=== PATIENT | male | born 1955 | race Caucasian/White ===

== ENCOUNTER 2019-11-16 23:56 | Inpatient (IN) | payer MEDICARE, OTHER ==
[~2019-11-16] VITALS: Ht 170.2 cm; Wt 81.6 kg
[2019-11-17] MEDS ORDERED: ONDANSETRON HCL 4MG/2ML INJ IV STA (00:42)
[2019-11-17] MEDS ORDERED: SODIUM CHLORIDE 0.9% 1,000 ML IV ONE (00:42)
[2019-11-17] MEDS ORDERED: AZITHROMYCIN 500 MG in DEXT 5% WATER 250 ML IV ONE (00:45)
[2019-11-17] MEDS ORDERED: CEFTRIAXONE 1 G PREMIX 50 ML IV ONE (00:45)
[2019-11-17 01:09] LABS: HEMATOCRIT. 41.8 % (42.0-52.0); HEMOGLOBIN. 13.8 g/dL (14.0-18.0); MEAN CORPUSCULAR HEMOGLOBIN 29.2 pg (28.0-32.0); MEAN CORPUSCULAR VOLUME 88.5 fL (80.0-94.0); MEAN PLATELET VOLUME 8.6 fl (7.4-10.4); PLATELET 142 x1000/uL (130-400); RED BLOOD CELL COUNT 4.72 mill/uL (4.7-6.1); RED CELL DISTRIBUTION WIDTH 14.8 % (11.6-14.6)
[2019-11-17 01:13] LABS: CHLORIDE 107 mEq/L (98-107)
[2019-11-17 01:15] LABS: INR 1.2; PROTHROMBIN TIME 11.8 sec (9.6-11.0)
[2019-11-17 01:18] LABS: ETHANOL BLOOD < 10 mg/dL
[2019-11-17 01:21] LABS: BG BASE EXCESS -4.5 mmol/L (-2.0-2.0); BG CARBOXYHEMOGLOBIN 0.5 % (0.5-1.5); BG DEOXYHEMOGLOBIN 3.6 % (0.0-5.0); BG FRACTION INSPIRED OXYGEN 60; BG HCO3 ACT 19.6 mmol/L (22.0-26.0); BG METHEMOGLOBIN 0.3 % (0.0-1.5); BG OXYGEN SATURATION 96.4 % (92.0-98.5); BG OXYHEMOGLOBIN 95.6 % (94.0-97.0); BG PCO2 33.3 mmHg (35.0-45.0); BG PH 7.388 (7.350-7.450); BG PO2 92.4 mmHg (75.0-100.0); BG SAMPLE SITE RIGHT RADIAL; BG TOTAL HEMOGLOBIN 13.1 g/dL (12.0-18.0); BG VENT MODE MASK - SIMPLE
[2019-11-17 01:59] LABS: CLARITY URINE TURBID (CLEAR); COLOR URINE DARK YELLOW (YELLOW); KETONES URINE NEGATIVE (NEGATIVE); LEUKOCYTE ESTERASE URINE 1+ (NEGATIVE); NITRITE URINE NEGATIVE (NEGATIVE); OCCULT BLOOD URINE 3+ (NEGATIVE); PROTEIN URINE 3+ (NEGATIVE); SPECIFIC GRAVITY URINE 1.015 (1.005-1.030); UROBILINOGEN URINE 0.2 E.U./dL (0.2-1.0)
[2019-11-17 02:14] LABS: *AMPHETAMINES SCREEN URINE NEGATIVE (NEGATIVE); CANNABINOID URINE SCREEN NEGATIVE (NEGATIVE); METHADONE URINE SCREEN NEGATIVE (NEGATIVE); OPIATES URINE SCREEN NEGATIVE (NEGATIVE); PHENCYCLIDINE URINE SCREEN NEGATIVE (NEGATIVE)
[2019-11-17 02:15] LABS: *BARBITURATES SCREEN URINE NEGATIVE (NEGATIVE); *BENZODIAZEPINES SCREEN URINE NEGATIVE (NEGATIVE); *COCAINE SCREEN URINE NEGATIVE (NEGATIVE)
[2019-11-17 03:58] LABS: PLATELET ESTIMATE NORMAL
[2019-11-17] MEDS ORDERED: IPRATROPIUM/ALBUTEROL 0.5-3(2.5)MG/3ML NEB NEB PRN (07:00)
[2019-11-17] MEDS ORDERED: DOCUSATE SODIUM 100MG CAPSULE PO PRN (07:00)
[2019-11-17] MEDS ORDERED: LORAZEPAM 2MG/ML CPJ IV PRN (07:00)
[2019-11-17] MEDS ORDERED: CLONIDINE 0.1MG TABLET PO PRN (07:00)
[2019-11-17] MEDS ORDERED: DIPHENHYDRAMINE 50MG/ML VIAL IV PRN (07:00)
[2019-11-17] MEDS ORDERED: ONDANSETRON HCL 4MG/2ML INJ IV PRN (07:00)
[2019-11-17] MEDS ORDERED: MORPHINE SULFATE 2 MG/ML CPJ (NOT FOR IM USE) IV PRN (07:00)
[2019-11-17] MEDS ORDERED: ACETAMINOPHEN 325MG TABLET PO PRN (07:00)
[2019-11-17] MEDS ORDERED: HYDROCODONE/ACETAMINOPHEN 5/325MG TABLET PO PRN (07:00)
[2019-11-17] MEDS ORDERED: GUAIFENESIN 200MG/10ML SUGAR FREE UDC PO PRN (07:00)
[2019-11-17] MEDS ORDERED: MAGNESIUM/ALUMINUM HYDROXIDE/SIMETHICONE 30ML UDC PO PRN (07:00)
[2019-11-17] MEDS ORDERED: NA PHOS,M-B/NA PHOS,DI-BA ENEMA 118ML PR PRN (07:00)
[2019-11-17] MEDS ORDERED: NOREPINEPHRINE 4 MG in DEXT 5% WATER 246 ML IV PRN (08:15)
[2019-11-17] MEDS ORDERED: SODIUM CHLORIDE 0.9% 500 ML IV ONE (08:15)
[2019-11-17] MEDS ORDERED: FUROSEMIDE 40MG/4ML VIAL IV SCH (09:00)
[2019-11-17] MEDS ORDERED: SODIUM CHLORIDE 0.9% 500 ML IV SCH (09:00)
[2019-11-17] MEDS ORDERED: ASPIRIN 81MG EC TABLET PO SCH (09:30)
[2019-11-17 10:00] VITALS: BP 108/42
[2019-11-17] MEDS ORDERED: ENOXAPARIN 40MG/0.4ML SYR SUBCUT SCH (10:00)
[2019-11-17 10:07] VITALS: BP 108/42
[2019-11-17 12:00] VITALS: BP 120/64
[2019-11-17 16:00] VITALS: BP 105/62
[2019-11-17] MEDS ORDERED: BUDESONIDE 0.5MG/2ML NEB HHN SCH (16:00)
[2019-11-17] MEDS: IPRATROPIUM/ALBUTEROL 0.5-3(2.5)MG/3ML NEB HHN SCH ×2 (16:35→20:14)
[2019-11-17] MEDS ORDERED: ALBUMIN HUMAN 25GM/100ML (25%) IV NR (17:00)
[2019-11-17 17:57] LABS: CREATINE KINASE MB FRACTION 1.3 ng/mL (0.5-3.6)
[2019-11-17 20:00] VITALS: BP 111/67
[2019-11-17 21:23] VITALS: BP 111/67
[2019-11-17] MEDS ORDERED: CEFTRIAXONE 1 G PREMIX 50 ML IV SCH (23:00)
[2019-11-18] VITALS: BP_SYST 109; BP_SYST 147; BP_DIAS 66
== END 2019-11-18 00:01 | disposition short-term general hospital (02) | DRG 682 ==
LOC: ER 23:56 → 5WST 11-17 03:46 → EDBEDREQSVC 11-17 03:48 → EDBEDREQ 11-17 03:48 → EDBEDREQTM 11-17 03:48 → ENRESERV 11-17 07:04
PROVIDERS: ADMIT Internal Medicine; ATTEND Internal Medicine
DX: N17.0 Acute kidney failure with tubular necrosis (principal); J96.01 Acute respiratory failure with hypoxia; E43 Unspecified severe protein-calorie malnutrition; I50.41 Acute combined systolic (congestive) and diastolic (congestive) heart failure; I13.0 Hypertensive heart and chronic kidney disease with heart failure and stage 1 through stage 4 chronic kidney disease, or unspecified chronic kidney disease; R65.10 Systemic inflammatory response syndrome (SIRS) of non-infectious origin without acute organ dysfunction; N18.9 Chronic kidney disease, unspecified; I95.9 Hypotension, unspecified; E78.5 Hyperlipidemia, unspecified; I25.10 Atherosclerotic heart disease of native coronary artery without angina pectoris; J20.9 Acute bronchitis, unspecified; Z87.891 Personal history of nicotine dependence; Z68.28 Body mass index [BMI] 28.0-28.9, adult
CPT/HCPCS: 36415; 36600; 71045; 76770; 80048; 80053; 80305; 80320; 81003; 82375; 82550; 82553; 82805; 83036; 83605; 83880; 84145; 84484; 85025; 85379; 87804; 93005; 94640; 96365; 96366; 96375; 99291; J0456; J0696; J1650; J1940; J2405; J7030; J7040; J7060; J7626; P9047; G0480

== ENCOUNTER 2019-12-21 09:48 | Inpatient (IN) | payer MEDICARE, OTHER ==
[~2019-12-21] VITALS: Ht 180.3 cm; Wt 78.9 kg
[2019-12-21 11:23] LABS: BASOPHILS % 0.9 % (0.0-2.0); EOSINOPHILS % 5.8 % (0.0-5.0); HEMATOCRIT. 25.6 % (42.0-52.0); HEMOGLOBIN. 8.6 g/dL (14.0-18.0); LYMPHOCYTES % 33.8 % (20.0-50.0); MEAN CORPUSCULAR HEMOGLOBIN 29.4 pg (28.0-32.0); MEAN CORPUSCULAR VOLUME 87.4 fL (80.0-94.0); MEAN PLATELET VOLUME 8.1 fl (7.4-10.4); MONOCYTES % 9.9 % (2.0-8.0); NEUTROPHILS % 49.6 % (40.0-76.0); PLATELET 123 x1000/uL (130-400); RED BLOOD CELL COUNT 2.93 mill/uL (4.7-6.1); RED CELL DISTRIBUTION WIDTH 14.9 % (11.6-14.6)
[2019-12-21 11:29] LABS: CHLORIDE 104 mEq/L (98-107)
[2019-12-21 11:30] LABS: INR 1.2; PROTHROMBIN TIME 13.4 sec (9.6-11.0)
[2019-12-21] MEDS ORDERED: FUROSEMIDE 20MG/2ML VIAL IVP ONE (12:00)
[2019-12-21] MEDS ORDERED: DOCUSATE SODIUM 100MG CAPSULE PO PRN (15:15)
[2019-12-21] MEDS ORDERED: DAPTOMYCIN 250 MG in SODIUM CHLORIDE 0.9% 50 ML IV SCH (15:15)
[2019-12-21] MEDS ORDERED: CLONIDINE 0.1MG TABLET PO PRN (15:15)
[2019-12-21] MEDS ORDERED: NA PHOS,M-B/NA PHOS,DI-BA ENEMA 118ML PR PRN (15:15)
[2019-12-21] MEDS ORDERED: ONDANSETRON HCL 4MG/2ML INJ IV PRN (15:15)
[2019-12-21] MEDS ORDERED: IPRATROPIUM/ALBUTEROL 0.5-3(2.5)MG/3ML NEB HHN PRN (15:15)
[2019-12-21] MEDS ORDERED: MORPHINE SULFATE 2 MG/ML CPJ (NOT FOR IM USE) IV PRN (15:15)
[2019-12-21] MEDS ORDERED: ACETAMINOPHEN 325MG TABLET PO PRN (15:15)
[2019-12-21] MEDS ORDERED: MAGNESIUM/ALUMINUM HYDROXIDE/SIMETHICONE 30ML UDC PO PRN (15:15)
[2019-12-21] MEDS ORDERED: GUAIFENESIN 200MG/10ML SUGAR FREE UDC PO PRN (15:15)
[2019-12-21] MEDS ORDERED: HYDROCODONE/ACETAMINOPHEN 5/325MG TABLET PO PRN (15:15)
[2019-12-21] MEDS ORDERED: ENOXAPARIN 40MG/0.4ML SYR SUBCUT SCH (15:30)
[2019-12-21] MEDS ORDERED: NON FORMULARY PATIENT HOME MED XX SCH (17:15)
[2019-12-21] MEDS: FUROSEMIDE 40MG/4ML VIAL IVP SCH (17:15)
[2019-12-21] MEDS: DAPTOMYCIN 500 MG in SODIUM CHLORIDE 0.9% 50 ML IV SCH (18:29)
[2019-12-21 22:30] VITALS: BP 116/70
[2019-12-21] MEDS: METOPROLOL TARTRATE 25MG TABLET PO SCH (22:31)
[2019-12-22] VITALS: BP 101/59
[2019-12-22] MEDS ORDERED: FURO40TA5 PO (00:03)
[2019-12-22] MEDS ORDERED: APIX5TAB PO (00:03)
[2019-12-22] MEDS ORDERED: ASPI325T85 PO (00:03)
[2019-12-22] MEDS ORDERED: ATOR40TA70 PO (00:03)
[2019-12-22] MEDS ORDERED: CARV3.1242 PO (00:03)
[2019-12-22] MEDS: IPRATROPIUM/ALBUTEROL 0.5-3(2.5)MG/3ML NEB HHN SCH ×3 (02:10→13:31)
[2019-12-22 04:00] VITALS: BP 94/59
[2019-12-22] MEDS: FUROSEMIDE 40MG/4ML VIAL IVP SCH ×2 (06:37→17:15)
[2019-12-22 08:00] VITALS: BP 102/72
[2019-12-22] MEDS: METOPROLOL TARTRATE 25MG TABLET PO SCH (09:00)
[2019-12-22 10:10] LABS: CHLORIDE 104 mEq/L (98-107)
[2019-12-22 10:28] LABS: BASOPHILS % 0.8 % (0.0-2.0); EOSINOPHILS % 4.3 % (0.0-5.0); HEMATOCRIT. 30.3 % (42.0-52.0); HEMOGLOBIN. 10.3 g/dL (14.0-18.0); LYMPHOCYTES % 33.5 % (20.0-50.0); MEAN CORPUSCULAR HEMOGLOBIN 29.6 pg (28.0-32.0); MEAN CORPUSCULAR VOLUME 87.3 fL (80.0-94.0); MEAN PLATELET VOLUME 8.7 fl (7.4-10.4); NEUTROPHILS % 53.4 % (40.0-76.0); PLATELET 151 x1000/uL (130-400); RED BLOOD CELL COUNT 3.48 mill/uL (4.7-6.1); RED CELL DISTRIBUTION WIDTH 15.3 % (11.6-14.6)
[2019-12-22 12:00] VITALS: BP 112/78
[2019-12-22] MEDS ORDERED: APIXABAN 5 MG TABLET PO SCH (14:00)
[2019-12-22 16:00] VITALS: BP 120/76
[2019-12-22 16:26] LABS: CREATINE KINASE 21 IU/L (39-308)
[2019-12-22 16:27] LABS: CREATINE KINASE MB FRACTION < 1.0 ng/mL (0.5-3.6)
[2019-12-22 16:32] LABS: T4 FREE 0.69 ng/dL (0.76-1.46)
[2019-12-22] MEDS: DAPTOMYCIN 500 MG in SODIUM CHLORIDE 0.9% 50 ML IV SCH (17:49)
[2019-12-22 17:58] VITALS: BP 120/76
== END 2019-12-22 19:05 | disposition home or self-care (01) | DRG 291 ==
LOC: ER 09:48 → EDBEDREQ 11:08 → EDBEDREQTM 13:35 → EDBEDREQ 13:35 → ENRESERV 21:07 → 5WST 22:19
PROVIDERS: ADMIT Hospitalist; ATTEND Hospitalist
DX: I11.0 Hypertensive heart disease with heart failure (principal); E43 Unspecified severe protein-calorie malnutrition; J96.00 Acute respiratory failure, unspecified whether with hypoxia or hypercapnia; J44.1 Chronic obstructive pulmonary disease with (acute) exacerbation; I50.43 Acute on chronic combined systolic (congestive) and diastolic (congestive) heart failure; I25.10 Atherosclerotic heart disease of native coronary artery without angina pectoris; D63.8 Anemia in other chronic diseases classified elsewhere; E78.00 Pure hypercholesterolemia, unspecified; Z87.891 Personal history of nicotine dependence; Z95.2 Presence of prosthetic heart valve; Z87.01 Personal history of pneumonia (recurrent); Z95.0 Presence of cardiac pacemaker; Z99.81 Dependence on supplemental oxygen; Z79.899 Other long term (current) drug therapy; Z79.82 Long term (current) use of aspirin; Z95.1 Presence of aortocoronary bypass graft; Z68.24 Body mass index [BMI] 24.0-24.9, adult
CPT/HCPCS: 36415; 71045; 80053; 80061; 82550; 82553; 83036; 83880; 84439; 84443; 84484; 85025; 85379; 93005; 93306; 93970; 94640; 99285; J0878; J1650; J1940

== ENCOUNTER 2020-01-17 10:46 | Inpatient (IN) | payer MEDICARE, OTHER ==
[~2020-01-17] VITALS: Ht 165.1 cm; Wt 79.8 kg
[~2020-01-17 10:46] MED LIST: APIX5TAB PO; ASPI325T85 PO; ATOR40TA70 PO; CARV3.1242 PO; FURO40TA5 PO
[2020-01-17] MEDS ORDERED: AMI2 PO (11:11)
[2020-01-17] MEDS ORDERED: NIFE-32 PO (11:11)
[2020-01-17] MEDS ORDERED: FERR325T6 PO (11:11)
[2020-01-17] MEDS ORDERED: NITROGLYCERIN 0.4MG TABLET SL SL PRN (11:45)
[2020-01-17] MEDS ORDERED: FUROSEMIDE 40MG/4ML VIAL IV ONE (11:45)
[2020-01-17] MEDS ORDERED: ASPIRIN 81MG TABLET PO ONE (11:45)
[2020-01-17 11:59] LABS: BASOPHILS % 0.2 % (0.0-2.0); HEMATOCRIT. 33.4 % (42.0-52.0); LYMPHOCYTES % 24.2 % (20.0-50.0); MEAN CORPUSCULAR HEMOGLOBIN 28.6 pg (28.0-32.0); MEAN CORPUSCULAR VOLUME 86.5 fL (80.0-94.0); MEAN PLATELET VOLUME 8.9 fl (7.4-10.4); MONOCYTES % 7.6 % (2.0-8.0); PLATELET 159 x1000/uL (130-400); RED BLOOD CELL COUNT 3.86 mill/uL (4.7-6.1); RED CELL DISTRIBUTION WIDTH 16.5 % (11.6-14.6)
[2020-01-17 12:00] LABS: CHLORIDE 106 mEq/L (98-107)
[2020-01-17 17:16] VITALS: BP 113/76
[2020-01-17 20:00] VITALS: BP_SYST 104; BP_SYST 106; BP_SYST 107; BP_DIAS 68; BP_DIAS 74; BP_DIAS 75
[2020-01-17] MEDS ORDERED: ONDANSETRON HCL 4MG/2ML INJ IV PRN (20:15)
[2020-01-17] MEDS ORDERED: HYDROCODONE/ACETAMINOPHEN 10/325MG TABLET PO PRN (20:15)
[2020-01-17] MEDS ORDERED: DOCUSATE SODIUM 100MG CAPSULE PO PRN (20:15)
[2020-01-17] MEDS ORDERED: LORAZEPAM 2MG/ML CPJ IV PRN (20:15)
[2020-01-17] MEDS ORDERED: HYDRALAZINE 20MG/ML VIAL IV PRN (20:15)
[2020-01-17] MEDS ORDERED: DIPHENHYDRAMINE 50MG/ML VIAL IV PRN (20:15)
[2020-01-17] MEDS ORDERED: ACETAMINOPHEN 325MG TABLET PO PRN (20:15)
[2020-01-17] MEDS ORDERED: GUAIFENESIN 200MG/10ML SUGAR FREE UDC PO PRN (20:15)
[2020-01-17] MEDS ORDERED: MORPHINE SULFATE 2 MG/ML CPJ (NOT FOR IM USE) IV PRN (20:15)
[2020-01-17] MEDS ORDERED: CLONIDINE 0.1MG TABLET PO PRN (20:15)
[2020-01-17] MEDS ORDERED: IPRATROPIUM/ALBUTEROL 0.5-3(2.5)MG/3ML NEB HHN PRN (20:15)
[2020-01-17] MEDS ORDERED: MAGNESIUM/ALUMINUM HYDROXIDE/SIMETHICONE 30ML UDC PO PRN (20:15)
[2020-01-17] MEDS ORDERED: ENOXAPARIN 40MG/0.4ML SYR SUBCUT SCH (21:00)
[2020-01-17] MEDS: SODIUM CHLORIDE 0.9% INJ 3ML FLUSH IVF SCH (21:15)
[2020-01-17 23:57] LABS: CREATINE KINASE 21 IU/L (39-308)
[2020-01-17 23:58] LABS: CREATINE KINASE MB FRACTION < 1.0 ng/mL (0.5-3.6)
[2020-01-18] VITALS: BP 105/73
[2020-01-18 04:00] VITALS: BP 99/66
[2020-01-18] MEDS: SODIUM CHLORIDE 0.9% INJ 3ML FLUSH IVF SCH ×3 (05:08→22:00)
[2020-01-18 07:08] LABS: BASOPHILS % 0.6 % (0.0-2.0); EOSINOPHILS % 2.6 % (0.0-5.0); HEMATOCRIT. 29.3 % (42.0-52.0); HEMOGLOBIN. 9.8 g/dL (14.0-18.0); LYMPHOCYTES % 43.8 % (20.0-50.0); MEAN CORPUSCULAR VOLUME 86.5 fL (80.0-94.0); MONOCYTES % 9.8 % (2.0-8.0); NEUTROPHILS % 43.2 % (40.0-76.0); PLATELET 134 x1000/uL (130-400); RED BLOOD CELL COUNT 3.39 mill/uL (4.7-6.1); RED CELL DISTRIBUTION WIDTH 16.3 % (11.6-14.6)
[2020-01-18 07:20] LABS: CHLORIDE 106 mEq/L (98-107)
[2020-01-18 07:34] LABS: CREATINE KINASE 18 IU/L (39-308)
[2020-01-18 07:40] LABS: CREATINE KINASE MB FRACTION < 1.0 ng/mL (0.5-3.6)
[2020-01-18 08:00] VITALS: BP 108/74
[2020-01-18 10:24] LABS: T4 FREE 1.16 ng/dL (0.76-1.46)
[2020-01-18] MEDS: FUROSEMIDE 20MG/2ML VIAL IVP SCH (11:03)
[2020-01-18] MEDS: ATORVASTATIN CALCIUM 40MG TABLET PO SCH (11:37)
[2020-01-18] MEDS: APIXABAN 5 MG TABLET PO SCH ×2 (11:37→17:32)
[2020-01-18] MEDS: CARVEDILOL 3.125 MG TABLET PO SCH ×2 (11:37→17:00)
[2020-01-18] MEDS: AMIODARONE HCL 200 MG TABLET PO SCH (11:38)
[2020-01-18 12:01] VITALS: BP 118/81
[2020-01-18 12:19] LABS: CREATINE KINASE 25 IU/L (39-308)
[2020-01-18 16:00] VITALS: BP 102/80
[2020-01-18 17:08] LABS: CREATINE KINASE 24 IU/L (39-308)
[2020-01-18 17:09] LABS: CREATINE KINASE MB FRACTION < 1.0 ng/mL (0.5-3.6)
[2020-01-18 20:00] VITALS: BP 119/81
[2020-01-18 23:02] LABS: CREATINE KINASE 20 IU/L (39-308)
[2020-01-18 23:03] LABS: CREATINE KINASE MB FRACTION < 1.0 ng/mL (0.5-3.6)
[2020-01-19] VITALS (36 sets, daily range): BP systolic 106–165; BP diastolic 27–85
[2020-01-19 05:17] LABS: BASOPHILS % 0.5 % (0.0-2.0); EOSINOPHILS % 3.6 % (0.0-5.0); HEMATOCRIT. 27.9 % (42.0-52.0); HEMOGLOBIN. 9.4 g/dL (14.0-18.0); LYMPHOCYTES % 44.9 % (20.0-50.0); MEAN CORPUSCULAR HEMOGLOBIN 29.2 pg (28.0-32.0); MEAN CORPUSCULAR VOLUME 86.8 fL (80.0-94.0); MEAN PLATELET VOLUME 8.8 fl (7.4-10.4); MONOCYTES % 10.4 % (2.0-8.0); NEUTROPHILS % 40.6 % (40.0-76.0); PLATELET 130 x1000/uL (130-400); RED BLOOD CELL COUNT 3.22 mill/uL (4.7-6.1)
[2020-01-19 05:36] LABS: CHLORIDE 107 mEq/L (98-107)
[2020-01-19 05:45] LABS: CREATINE KINASE 19 IU/L (39-308)
[2020-01-19 05:47] LABS: CREATINE KINASE MB FRACTION < 1.0 ng/mL (0.5-3.6)
[2020-01-19] MEDS: SODIUM CHLORIDE 0.9% INJ 3ML FLUSH IVF SCH ×3 (06:00→21:21)
[2020-01-19] MEDS: ATORVASTATIN CALCIUM 40MG TABLET PO SCH (09:04)
[2020-01-19] MEDS: AMIODARONE HCL 200 MG TABLET PO SCH (09:04)
[2020-01-19] MEDS: APIXABAN 5 MG TABLET PO SCH (09:05)
[2020-01-19] MEDS: CARVEDILOL 3.125 MG TABLET PO SCH ×2 (09:11→17:30)
[2020-01-19 09:38] LABS: CLARITY URINE CLEAR (CLEAR); COLOR URINE YELLOW (YELLOW); KETONES URINE NEGATIVE (NEGATIVE); LEUKOCYTE ESTERASE URINE NEGATIVE (NEGATIVE); NITRITE URINE NEGATIVE (NEGATIVE); OCCULT BLOOD URINE 2+ (NEGATIVE); PROTEIN URINE NEGATIVE (NEGATIVE); SPECIFIC GRAVITY URINE 1.017 (1.005-1.030); UROBILINOGEN URINE 0.2 E.U./dL (0.2-1.0)
[2020-01-19] MEDS: FUROSEMIDE 20MG/2ML VIAL IVP SCH (10:17)
[2020-01-19] MEDS ORDERED: EPINEPHRINE 4 MG in DEXT 5% WATER 246 ML IV NR (12:30)
[2020-01-19] MEDS ORDERED: NOREPINEPHRINE 4 MG in DEXT 5% WATER 246 ML IV NR (12:30)
[2020-01-19] MEDS ORDERED: BUPIVACAINE HCL/PF 0.25% (2.5MG/ML) 10ML ONE (12:46)
[2020-01-19] MEDS ORDERED: SKIN ADHESIVE 0.7 GM EA TOP ONE (12:46)
[2020-01-19] MEDS ORDERED: BUPIVACAINE/EPINEPH/PF 0.25%/0.0005 10ML ONE (12:46)
[2020-01-19] MEDS ORDERED: NORMAL SALINE 0.9% 10 ML SYR ONE (12:46)
[2020-01-19] MEDS ORDERED: BACITRACIN 15GM TUBE TOP ONE (12:46)
[2020-01-19] MEDS ORDERED: BACITRACIN 50,000 UNITS/VIAL ONE (12:47)
[2020-01-19] MEDS ORDERED: CHLORHEXIDINE GLUCONATE 4% EXTERNAL USE TOP SCH ×2 (13:30→21:00)
[2020-01-19 14:53] LABS: INR 1.1; PARTIAL THROMBOPLASTIN TIME 29.9 sec (23.4-31.0); PROTHROMBIN TIME 12.3 sec (9.6-11.0)
[2020-01-19] MEDS ORDERED: DEXT 5%/0.45% NACL 1000ML 1,000 ML IV SCH (15:59)
[2020-01-19] MEDS ORDERED: MORPHINE SULFATE 2 MG/ML CPJ (NOT FOR IM USE) IV PRN (16:00)
[2020-01-19] MEDS ORDERED: CALCIUM CHLORIDE 3,000 MG in DEXT 5% WATER 250 ML IV PRN (16:00)
[2020-01-19] MEDS ORDERED: ALBUMIN HUMAN 25GM/100ML (25%) IV PRN (16:00)
[2020-01-19] MEDS ORDERED: OXYCODONE HCL/ACETAMINOPHEN 5/325MG TABLET PO PRN (16:00)
[2020-01-19] MEDS ORDERED: ONDANSETRON HCL 4MG/2ML INJ IV PRN (16:00)
[2020-01-19] MEDS ORDERED: ALBUMIN HUMAN 12.5G/250ML (5%) IV PRN (16:00)
[2020-01-19] MEDS ORDERED: FAMOTIDINE 20MG/2ML VIAL IV SCH (16:07)
[2020-01-19] MEDS ORDERED: KCL 10MEQ/50ML PREMIX 100 ML IV PRN (16:30)
[2020-01-19] MEDS ORDERED: KCL 10MEQ/50ML PREMIX 200 ML IV PRN (16:30)
[2020-01-19] MEDS ORDERED: KCL 10MEQ/50ML PREMIX 150 ML IV PRN (16:30)
[2020-01-19] MEDS: KETOROLAC 15MG/ML VIAL IV SCH ×2 (16:45→21:16)
[2020-01-19 17:03] LABS: BG CARBOXYHEMOGLOBIN 0.3 % (0.5-1.5); BG DEOXYHEMOGLOBIN 1.9 % (0.0-5.0); BG FRACTION INSPIRED OXYGEN 60; BG HCO3 ACT 25.4 mmol/L (22.0-26.0); BG METHEMOGLOBIN 0.3 % (0.0-1.5); BG OXYGEN SATURATION 98.1 % (92.0-98.5); BG OXYHEMOGLOBIN 97.5 % (94.0-97.0); BG PCO2 44.6 mmHg (35.0-45.0); BG PH 7.373 (7.350-7.450); BG PO2 122.2 mmHg (75.0-100.0); BG SAMPLE SITE A-LINE; BG TOTAL HEMOGLOBIN 10.3 g/dL (12.0-18.0); BG VENT MODE MASK - SIMPLE
[2020-01-19 17:11] LABS: BASOPHILS % 0.4 % (0.0-2.0); HEMATOCRIT. 29.6 % (42.0-52.0); LYMPHOCYTES % 25.8 % (20.0-50.0); MEAN CORPUSCULAR HEMOGLOBIN 29.3 pg (28.0-32.0); MEAN CORPUSCULAR VOLUME 86.5 fL (80.0-94.0); MEAN PLATELET VOLUME 8.9 fl (7.4-10.4); MONOCYTES % 6.6 % (2.0-8.0); NEUTROPHILS % 64.2 % (40.0-76.0); PLATELET 146 x1000/uL (130-400); RED BLOOD CELL COUNT 3.42 mill/uL (4.7-6.1); RED CELL DISTRIBUTION WIDTH 16.5 % (11.6-14.6)
[2020-01-19 17:16] LABS: INR 1.2; PARTIAL THROMBOPLASTIN TIME 29.6 sec (23.4-31.0); PROTHROMBIN TIME 12.7 sec (9.6-11.0)
[2020-01-19] MEDS: DOCUSATE SODIUM 100MG CAPSULE PO SCH (17:30)
[2020-01-19] MEDS ORDERED: MAGNESIUM 4 G PREMIX 100 ML IV SCH (18:30)
[2020-01-19] MEDS ORDERED: FUROSEMIDE 40MG/4ML VIAL IVP NR (20:00)
[2020-01-20] VITALS (50 sets, daily range): BP systolic 92–145; BP diastolic 56–97
[2020-01-20] MEDS: CEFAZOLIN 1000MG PREMIX 50 ML IV SCH ×2 (00:15→06:30)
[2020-01-20 05:50] LABS: BASOPHILS % 0.1 % (0.0-2.0); HEMATOCRIT. 29.6 % (42.0-52.0); HEMOGLOBIN. 9.9 g/dL (14.0-18.0); LYMPHOCYTES % 24.5 % (20.0-50.0); MEAN CORPUSCULAR HEMOGLOBIN 28.6 pg (28.0-32.0); MEAN CORPUSCULAR VOLUME 85.7 fL (80.0-94.0); MEAN PLATELET VOLUME 8.7 fl (7.4-10.4); MONOCYTES % 5.9 % (2.0-8.0); NEUTROPHILS % 69.5 % (40.0-76.0); PLATELET 148 x1000/uL (130-400); RED BLOOD CELL COUNT 3.45 mill/uL (4.7-6.1)
[2020-01-20] MEDS: SODIUM CHLORIDE 0.9% INJ 3ML FLUSH IVF SCH (06:30)
[2020-01-20] MEDS: CARVEDILOL 3.125 MG TABLET PO SCH (08:19)
[2020-01-20] MEDS: FUROSEMIDE 20MG/2ML VIAL IVP SCH (08:19)
[2020-01-20] MEDS: AMIODARONE HCL 200 MG TABLET PO SCH (08:20)
[2020-01-20] MEDS: DOCUSATE SODIUM 100MG CAPSULE PO SCH (08:20)
[2020-01-20] MEDS: ATORVASTATIN CALCIUM 40MG TABLET PO SCH (08:20)
[2020-01-20] MEDS: OXYCODONE HCL/ACETAMINOPHEN 5/325MG TABLET PO PRN ×2 (08:20→12:01)
[2020-01-20] MEDS ORDERED: FAMOTIDINE 20MG TABLET PO SCH (09:00)
== END 2020-01-20 15:40 | DRG 189 ==
LOC: ER 10:46 → 5WST 13:33 → ENRESERV 15:17 → CVICU 01-19 16:00
PROVIDERS: ADMIT Internal Medicine; ATTEND Internal Medicine
PROC: B24CZZ4 Ultrasonography of Pericardium, Transesophageal (ICD-10-PCS; principal; 2020-01-19)
PROC: 0W9D30Z Drainage of Pericardial Cavity with Drainage Device, Percutaneous Approach (ICD-10-PCS; 2020-01-19)
DX: J96.00 Acute respiratory failure, unspecified whether with hypoxia or hypercapnia (principal); N17.0 Acute kidney failure with tubular necrosis; E43 Unspecified severe protein-calorie malnutrition; I50.43 Acute on chronic combined systolic (congestive) and diastolic (congestive) heart failure; I31.3 Pericardial effusion (noninflammatory); I13.0 Hypertensive heart and chronic kidney disease with heart failure and stage 1 through stage 4 chronic kidney disease, or unspecified chronic kidney disease; E44.1 Mild protein-calorie malnutrition; I31.4 Cardiac tamponade; D64.9 Anemia, unspecified; E78.5 Hyperlipidemia, unspecified; I25.10 Atherosclerotic heart disease of native coronary artery without angina pectoris; J44.9 Chronic obstructive pulmonary disease, unspecified; N18.9 Chronic kidney disease, unspecified; Z87.891 Personal history of nicotine dependence; Z95.1 Presence of aortocoronary bypass graft; Z95.2 Presence of prosthetic heart valve; Z95.810 Presence of automatic (implantable) cardiac defibrillator; Z79.82 Long term (current) use of aspirin; Z79.84 Long term (current) use of oral hypoglycemic drugs; Z79.01 Long term (current) use of anticoagulants; Z79.899 Other long term (current) drug therapy; Z95.3 Presence of xenogenic heart valve; Z68.29 Body mass index [BMI] 29.0-29.9, adult
CPT/HCPCS: 36415; 36600; 71045; 78582; 80048; 80053; 80061; 81003; 82375; 82550; 82553; 82805; 83036; 83735; 83880; 84439; 84443; 84484; 85025; 85379; 86850; 86900; 87070; 87075; 87116; 88108; 88305; 88312; 93005; 93306; 93970; 99285; A9558; J0171; J0690; J1650; J1885; J1940; J3475; J3490; J7060